=== PATIENT | male | born 1950 | race Caucasian/White ===

== ENCOUNTER 2016-08-04 04:10 | Emergency (ER) | payer OTHER, BC ==
[2016-08-04 04:18] VITALS: PULSE 70; TEMP 987.8; BMI 25.7
[2016-08-04] MEDS ORDERED: CYCLOBENZAPRINE HCL 10 MG TABLET (FP) PO ONE (04:25)
[2016-08-04] MEDS ORDERED: KETOROLAC TROMETHAMINE 60 MG/2 ML VIAL IM ONE (04:25)
--- NOTE | 2016-08-04 04:25 | PDOC ---
History of Present Illness - General Chief Complaint: Pain, Acute Stated Complaint: BACK PAIN RADIATING DOWN LEG X 2 WEEKS Time Seen by Provider: 08/04/16 04:19 History Source: Patient Exam Limitations: No Limitations - History of Present Illness Initial Comments: 08/04/16 04:27 This is a 66-year-old male who comes in complaining of low back pain radiating to his left leg. Patient denies any numbness or weakness of left leg. Patient has a history of pain and was recently seen by his orthopedist who started him on a Medrol Dosepak. Patient said he has finished Medrol Dosepak and the pain is still there. Patient denies any new or recent trauma. Patient said that when he was at the orthopedist he had x-rays of his back and hip and they were fine. Patient otherwise is healthy. Patient has another appointment with his orthopedist for this week. PAST MEDICAL HISTORY: no significant history PAST SURGICAL HISTORY: no significant history FAMILY HISTORY: no pertinant history SOCIAL HISTORY: Pt lives with family and is employed. MEDICATIONS: reviewed ALLERGIES: As per nursing notes Review of Systems General: No fevers or chills, no weakness, no weight loss HEENT: No change in vision. No sore throat,. No ear pain CardioVascular: No chest pain or shortness of breath Respiratory:No cough, or wheezing. Gastrointestinal: no nausea, vomitting, diarrhea or constipation, No rectal bleeding Genitourinary: No dysuria, hematuria, or frequency Musculoskeletal: No joint or muscle pain or swelling, low back pain/sciatica as per history of present illness Neurologic: No headache, vertigo, dizziness or loss of consciousness Psychiatric: nor depression Skin: No rashes or easy bruising Endocrine: no increased thirst or abnormal weight change Allergic: no skin or latex allergy All other systems reviewed and normal GENERAL: The patient is awake, alert, and fully oriented, in no acute distress. HEAD: Normal with no signs of trauma. EYES: Pupils equal, round and reactive to light, extraocular movements intact, sclera anicteric, conjunctiva clear. EXTREMITIES: Normal range of motion, no edema. Back: There is tenderness on palpation of the sciatic notch and L5-S1 area. There is paraspinal spasm. Pain is reproduced on straight leg raising at approximately 45 on the left and 90 on the right. Neurovascular is intact. NEUROLOGICAL: Normal speech, normal gait. PSYCH: Normal mood, normal affect. SKIN: Warm, Dry, normal turgor, no rashes or lesions noted. Assessment and plan: This is a 66-year-old male who comes in complaining of sciatica/low back pain radiating to his leg. Patient given a shot of Toradol and started on Flexeril. Patient has an appointment with his orthopedist to follow-up this week. Patient discharged home with prescription for more Flexeril. Past History - Past Medical History Allergies/Adverse Reactions: Allergies Allergy/AdvReac Type Severity Reaction Status Date / Time pseudoephedrine HCl AdvReac Verified 08/04/16 04:12 [From [facility]] Home Medications: Ambulatory Orders Cyclobenzaprine HCl [Flexeril 10 mg] 10 mg PO TID #60 tablet 08/04/16 Other medical history: DENIES - Psycho/Social/Smoking Cessation Hx Anxiety: No Suicidal Ideation: No Smoking History: Never smoked Have you smoked in the past 12 months: No Information on smoking cessation initiated: No Hx Alcohol Use: Yes (MODERATE) Drug/Substance Use Hx: No Substance Use Type: None *Physical Exam - Vital Signs Last Vital Signs Temp Pulse Resp BP Pulse Ox 987.8 F H 70 16 154/111 100 08/04/16 04:13 08/04/16 04:13 08/04/16 04:13 08/04/16 04:13 08/04/16 04:13 *DC/Admit/Observation/Transfer Diagnosis at time of Disposition: Sciatica of left side - Discharge Dispostion Disposition: HOME Condition at time of disposition: Stable Admit: No - Referrals Referrals: Francesco Soto MD [Primary Care Provider] - - Patient Instructions Printed Discharge Instructions: DI for Back Pain With Sciatica, Sciatica ( Alternative Therapy), Early Surgery Relieves Sciatica Pain Faster, but Nonsurgical Treatment Is J Additional Instructions: For the pain continue to take her Aleve as prescribed In addition take Flexeril one tablet 3 times a day the Flexeril make you drowsy so you may need to just limited to the nighttime hours. Return to the emergency department immediately with ANY new, persistent or worsening symptoms. Continue any medications as previously prescribed by your physician. You should follow up with your primary doctor as soon as possible regarding today's emergency department visit. . Please make sure your doctor reviews the results of your emergency evaluation. Thank you for coming to the Emergency Department today for your care. It was a pleasure to see you today. Please note that your evaluation is INCOMPLETE until you follow-up with your doctor.
[2016-08-04] MEDS ORDERED: CYCLOBENZAPRINE HCL 10 MG TABLET (FP) ONE (04:26)
[2016-08-04] MEDS ORDERED: KETOROLAC TROMETHAMINE 60 MG/2 ML VIAL ONE (04:26)
[2016-08-04 04:32] VITALS: BP 170/106
== END 2016-08-04 04:34 | disposition home or self-care (01) ==
LOC: FER 04:10
PROC: 3E0233Z Introduction of Anti-inflammatory into Muscle, Percutaneous Approach (ICD-10-PCS; principal; 2016-08-04)
DX: M54.32 Sciatica, left side (principal)
CPT/HCPCS: 96372; 99281-25

== ENCOUNTER 2018-03-07 10:04 | Inpatient (IN) | payer OTHER, BC ==
[2018-02-20 12:47] VITALS: BMI 26.6
--- NOTE | 2018-03-07 08:01 | HP ---
Satellite [facility] - Chief Complaint Chief Complaint: right hip pain - Past Medical History Allergies/Adverse Reactions: Allergies Allergy/AdvReac Type Severity Reaction Status Date / Time pseudoephedrine HCl AdvReac Intermediate GETS VERY Verified 02/20/18 12:29 [From Sudafed] ANTONIA MALHOTRA garlic AdvReac Mild DRY MOUTH Verified 02/20/18 12:30 onion AdvReac Mild DRY MOUTH Verified 02/20/18 12:30 - Current Medications Current Medications: Home Medications Medication Instructions Recorded Acetaminophen 500 mg PO ASDIR PRN 02/20/18 Duloxetine HCl [Cymbalta] 30 mg PO DAILY 02/20/18 Ibuprofen [Advil -] 200 mg PO QID PRN 02/20/18 Loratadine [Claritin] 10 mg PO ASDIR PRN 02/20/18 Medical Marijuana [Medical 1 dose PO ASDIR PRN 02/20/18 Marijuana Oil] Naproxen Sodium [Aleve] 220 mg PO ASDIR PRN 02/20/18 Vitamin E 400 unit PO DAILY 02/20/18 Zolpidem Tartrate [Ambien] 5 mg PO HS PRN 02/20/18 Satellite Physical Exam - Physical Examination General Appearance: Well Nourished, Well Developed, Alert & Oriented x3 ENT: Clear Lung: Normal air movement Heart: Regular rate & rhythm Extremities: Other (right hip- + ttp ,decr rom, nvi xrays show grade 4 hip djd) Neurological: Intact, Alert, Oriented Satellite Impression/Plan - Impression/Plan Impression: right hip djd Operative Procedure: right rocio thr Date to be Performed: 03/07/18
[2018-03-07] MEDS ORDERED: CEFAZOLIN 2 GM in DEXTROSE 5%-WATER - 50 ML IVPB ONE (10:44)
[2018-03-07] MEDS ORDERED: TRANEXAMIC ACID 1000 MG/10 ML VIAL IVPUSH ONE (11:00)
[2018-03-07] MEDS ORDERED: MIDAZOLAM HCL 2 MG/2 ML SINGLE DOSE VIAL ONE ×2 (12:06→13:01)
[2018-03-07] MEDS ORDERED: EPINEPHrine/PF 1 MG/1 ML (1:1,000) AMPULE ONE (12:07)
[2018-03-07] MEDS ORDERED: BUPIVACAINE HCL/PF (5 MG/ML) 30 ML VIAL IJ ONE (12:07)
[2018-03-07] MEDS ORDERED: ceFAZolin SODIUM 1 GM VIAL ONE ×2 (12:49→13:03)
[2018-03-07] MEDS ORDERED: VANCOMYCIN 1,000 MG VIAL (RESTRICTED TO ID ONLY) ONE (12:49)
[2018-03-07] MEDS ORDERED: SODIUM CHLORIDE 0.9% P/F 10 ML VIAL IJ ONE (13:03)
[2018-03-07] MEDS ORDERED: DEXAMETHASONE SOD PHOSPHATE 4 MG/1 ML VIAL ONE (13:03)
[2018-03-07] MEDS ORDERED: ONDANSETRON 4 MG/2 ML VIAL ONE (13:03)
[2018-03-07] MEDS ORDERED: TRANEXAMIC ACID 1000 MG/10 ML VIAL ONE (13:03)
[2018-03-07] MEDS ORDERED: PROMETHAZINE HCL 25 MG/1 ML VIAL IVPUSH PRN (13:45)
[2018-03-07] MEDS ORDERED: ONDANSETRON 4 MG/2 ML VIAL IVPUSH PRN ×2 (13:45→15:11)
[2018-03-07] MEDS ORDERED: PROPOFOL 20 ML ONE (14:38)
[2018-03-07] MEDS ORDERED: VANCOMYCIN 1,000 MG VIAL (RESTRICTED TO ID ONLY) IVPB ONE (14:45)
[2018-03-07] MEDS ORDERED: CELECOXIB 200 MG CAPSULE PO ONE (15:00)
[2018-03-07] MEDS ORDERED: oxyCODONE HCL 10 MG SUSTAINED ACTING TABLET PO ONE (15:00)
[2018-03-07] MEDS ORDERED: GABAPENTIN 300 MG CAPSULE (FP) PO ONE (15:00)
[2018-03-07] MEDS ORDERED: ZOLPIDEM TARTRATE 5 MG TABLET PO PRN (15:11)
[2018-03-07] MEDS ORDERED: MAGNESIUM HYDROX 2400MG/30ML ORAL SUSPENSION 30 ML CUP PO PRN (15:11)
[2018-03-07] MEDS ORDERED: MAG HYDROX/AL HYDROX/SIMETH 30 ML UNIT-DOSE CUP PO PRN (15:11)
--- NOTE | 2018-03-07 15:13 | OP ---
Operative Note - Note: Operative Date: 03/07/18 (john) Pre-Operative Diagnosis: right hip djd Operation: right rocio thr Post-Operative Diagnosis: Same as Pre-op Surgeon: Francesco Soto Machine Clerical Verifier: Dudley Schmidt Anesthesiologist/HAND DRAWER IN: Gabino Bain Anesthesia: Spinal, Local Specimens Removed: femoral head Estimated Blood Loss (mls): 100 Operative Report Dictated: Yes
[2018-03-07] MEDS ORDERED: LACTATED RINGERS SOLUTION 1,000 ML IV SCH (15:15)
[2018-03-07] MEDS ORDERED: ACETAMINOPHEN 325 MG TABLET (FP) PO ONE (16:00)
[2018-03-07] MEDS: oxyCODONE HCL 5 MG TABLET PO PRN ×3 (18:13→21:04)
--- NOTE | 2018-03-07 18:47 | SPEC ---
DATE OF OPERATION: 03/07/2018 PREOPERATIVE DIAGNOSIS: Right hip degenerative joint disease. POSTOPERATIVE DIAGNOSIS: Right hip degenerative joint disease. PROCEDURE PERFORMED: Right total hip replacement with robotic-assisted navigation (MAKOplasty). SURGICAL ATTENDING: Francesco Soto MD MAGNETIC PROSPECTOR: NASH Koo ANESTHESIA: Regional and spinal. CLOSURE: A Trident II 56 press-fit acetabulum, Accolade II size 7 press-fit femoral stem, and a metallic standard 36-mm head. No. 1 Vicryl for fascia, 0 and 2-0 subcutaneous, 3-0 Monocryl subcuticular with skin glue for skin, 4-0 undyed Vicryl for pin sites. ESTIMATED BLOOD LOSS: Less than 100 mL. COMPLICATIONS: None. CONDITION: To the recovery room in stable condition. DESCRIPTION OF PROCEDURE: The patient was taken to the operating room on March 07, 2018. General and regional anesthesia was administered by the anesthesiologist. IV Kefzol and TXA were administered prophylactically prior to the case. The patient was placed in the lateral decubitus position will all prominences well-padded. The right hip area was prepped and draped in the usual sterile fashion. Using 3 small stab incisions over the iliac crest, 3 threaded pins were drilled in power fashion through the 2 tables of the crest. These pins were fastened and the navigation array for the Layo navigation system. Next, a 12- to 15-cm curved longitudinal incision over the posterolateral aspect of the greater trochanter was incised. Hemostasis was achieved with Bovie cautery. Sharp dissection was carried down to level of the fascia. The fascia was opened the entire length of the incision, spreading the fibers of the gluteus christy in the direction of origin. A Charnley retractor was placed in this layer. Care was taken not to impale the sciatic nerve. The short external rotators were detached off the insertion of the greater trochanter and peeled off the capsule. A posterior capsulotomy was then performed. A check point was malleted into the greater trochanter and a point on the inferior pole of the patella was obtained as well. These 2 points were used to assess the preoperative offset and limb lengths of the hip. The hip was then dislocated. The femoral neck was then osteotomized down to the appropriate level as directed by the navigation device. Anterior and posterior retractors were placed, exposing the acetabulum. A circumferential labral excision was performed. A check point was malleted into the acetabulum as well. Multiple sites inside the acetabulum and around the rim were utilized to register the acetabulum with the navigation device. An excellent registration of less than 0.5 mm was obtained. The hip was then reamed with the appropriate reamer down to the appropriate depth, with the appropriate orientation and version as assessed on our preoperative plan for this patient. The reamer was removed, and the acetabulum was inspected to have good bleeding surfaces throughout. The real acetabular cup was then malleted down into place, with the holes in the appropriate position, until an excellent fixation was obtained. No screws were necessary. The navigation device ensured appropriate orientation and version, with the depth as predetermined. The appropriate liner was then clipped into place. Attention was directed to the femur. The proximal femur was prepared by use a box chisel, a canal finder and serial broaches until the broach achieved excellent rigidity in the proximal femur with the appropriate version being applied. A calcar planer was used to smooth off the calcar flush with the trial components. A trial reduction with the appropriate head was done, and the hip was reduced. The hip was taken through a range of motion from full extension with external rotation to marked flexion and was stable at 90 degrees of flexion. It was stable to marked abduction and internal rotation, with a positive hang test and negative telescoping. Limb lengths were ascertained visually as well as with the navigation device to be within the targeted range for this patient. The trial component was removed. The real component was then malleted into place. The head was cold welded to the trunnion, and the hip was reduced. Range of motion, stability and limb lengths were as described in the trial component. Then the hip was pulse antibiotic irrigated. Vancomycin powder was placed in the hip joint. The capsule was closed. The fascia was then closed as well using No. 1 Vicryl interrupted suture, 0 and 2-0 subcutaneous, and 3-0 V-Loc for the skin. Then 4-0 undyed Vicryl was used to close the pin sites after the pins were removed. All check points were also removed. Sterile Aquacel dressing was applied. The patient was awakened from anesthesia and transferred into the supine position. Bilateral SCDs and an abduction pillow were placed. X-rays revealed excellent position of the components. The patient was transferred to the recovery room in stable condition, with no complications. Estimated blood loss was less than 100 mL. Kenn [id number]
[2018-03-07] MEDS: CEFAZOLIN 2 GM/D5W 2 GM/50 ML ML IVPB SCH (21:04)
[2018-03-07] MEDS: SENNOSIDES/DOCUSATE COMBO (SENNA PLUS) TABLET (UD) PO SCH (21:04)
[2018-03-07] MEDS: ACETAMINOPHEN 325 MG TABLET (FP) PO SCH (21:05)
[2018-03-07] MEDS: oxyCODONE HCL 10 MG SUSTAINED ACTING TABLET PO SCH (21:05)
[2018-03-08] MEDS: oxyCODONE HCL 5 MG TABLET PO PRN ×3 (00:13→20:42)
[2018-03-08] MEDS: ACETAMINOPHEN 325 MG TABLET (FP) PO SCH ×4 (03:43→22:18)
[2018-03-08] MEDS: CEFAZOLIN 2 GM/D5W 2 GM/50 ML ML IVPB SCH (06:52)
[2018-03-08] MEDS: ASPIRIN 325 MG TABLET PO SCH (08:13)
[2018-03-08 08:14] LABS: HEMOGLOBIN 13.4 GM/dl (11.7-16.9); MCHC 34.4 g/dl (32.0-35.9); MEAN CELL VOLUME 98.6 fl (80-96); MEAN PLT VOLUME 8.4 fl (7.5-11.1); PLATELET COUNT 265 K/MM3 (134-434); RBC 3.95 M/mm3 (4.00-5.60); RDW 11.9 % (11.9-15.9); WHITE BLOOD COUNT 14.3 K/mm3 (4.0-10.8)
--- NOTE | 2018-03-08 10:00 | PN ---
Progress Note (short form) - Note Progress Note: Ortho Pt seen and examined s/p right rocio thr pod #1 Selected Entries 03/08/18 06:00 Temperature 97.5 F L Pulse Rate 70 Respiratory 18 Rate Blood Pressure 126/79 Laboratory Tests 03/08/18 07:41 WBC 14.3 H Hgb 13.4 Hct 39.0 Plt Count 265 dressing c/d/i, calf soft, nt nvi a/p PT hip precautions dvt ppx pain control d/c home tomorrow if stable
[2018-03-08] MEDS: DULoxetine HCL 30 MG CAPSULE.DR (FP) PO SCH (10:12)
[2018-03-08] MEDS: SENNOSIDES/DOCUSATE COMBO (SENNA PLUS) TABLET (UD) PO SCH ×2 (10:12→22:18)
[2018-03-08] MEDS: PANTOPRAZOLE 40 MG TABLET (FP) PO SCH (10:12)
[2018-03-08] MEDS: MULTIVITAMINS (DAILY MVI) TABLET (FP) PO SCH (10:12)
[2018-03-08] MEDS: oxyCODONE HCL 10 MG SUSTAINED ACTING TABLET PO SCH ×2 (10:13→22:18)
--- NOTE | 2018-03-08 10:17 | PN ---
Progress Note (short form) - Note Progress Note: 68 M POD1 s/p R THR under under spinal anesthetic with peripheral nerve block for post operative pain relief. Pt states that pain is well controlled and reports no anesthetic complications. AVSS. Motor and sensory function intact in bilateral lower extremities. Continue current regimen.
[2018-03-09] MEDS: ACETAMINOPHEN 325 MG TABLET (FP) PO SCH ×2 (03:06→09:35)
[2018-03-09] MEDS: oxyCODONE HCL 5 MG TABLET PO PRN (06:25)
[2018-03-09] MEDS: ASPIRIN 325 MG TABLET PO SCH (08:17)
[2018-03-09 08:18] LABS: HEMATOCRIT 38.3 % (35.4-49); HEMOGLOBIN 13.3 GM/dl (11.7-16.9); MCH 34.2 pg (25.7-33.7); MCHC 34.7 g/dl (32.0-35.9); MEAN CELL VOLUME 98.4 fl (80-96); MEAN PLT VOLUME 8.1 fl (7.5-11.1); PLATELET COUNT 227 K/MM3 (134-434); RBC 3.89 M/mm3 (4.00-5.60); RDW 12.1 % (11.9-15.9); WHITE BLOOD COUNT 10.9 K/mm3 (4.0-10.8)
[2018-03-09 09:33] VITALS: BP 139/72; PULSE 101; TEMP 98.7
[2018-03-09] MEDS: DULoxetine HCL 30 MG CAPSULE.DR (FP) PO SCH (09:34)
[2018-03-09] MEDS: PANTOPRAZOLE 40 MG TABLET (FP) PO SCH (09:34)
[2018-03-09] MEDS: MULTIVITAMINS (DAILY MVI) TABLET (FP) PO SCH (09:34)
[2018-03-09] MEDS: SENNOSIDES/DOCUSATE COMBO (SENNA PLUS) TABLET (UD) PO SCH (09:34)
[2018-03-09] MEDS: oxyCODONE HCL 10 MG SUSTAINED ACTING TABLET PO SCH (09:34)
--- NOTE | 2018-03-09 10:16 | PN ---
Progress Note (short form) - Note Progress Note: Ortho Pt seen and examined s/p right rocio thr pod #2 Selected Entries 03/09/18 09:31 Temperature 98.7 F Pulse Rate 101 H Respiratory 20 Rate Blood Pressure 139/72 Laboratory Tests 03/09/18 07:44 WBC 10.9 H Hgb 13.3 Hct 38.3 Plt Count 227 dressing c/d/i, calf soft, nt nvi a/p PT hip precautions dvt ppx pain control d/c home today f/u in 1 week
--- NOTE | 2018-03-09 10:16 | DS ---
Physical Examination Vital Signs: Vital Signs Temperature 98.7 F 03/09/18 09:31 Pulse Rate 101 H 03/09/18 09:31 Respiratory Rate 20 03/09/18 09:31 Blood Pressure 139/72 03/09/18 09:31 O2 Sat by Pulse Oximetry (%) 98 03/09/18 07:02 Labs: CBC, BMP 03/09/18 07:44 Discharge Summary Reason For Visit: OSTEOARTHRITIS Procedures: Principal: right thr Hospital Course: admitted for elective right rocio thr, uneventful post-op, stable for d/c Condition: Good - Instructions Diet, Activity, Other Instructions: Post-op Instructions-Total Hip Replacement Call the office for a follow-up appointment in 1 week - [phone] Aspirin 325mg daily for 6 weeks. Pain medication was sent into your pharmacy. Apply Graduated Compression Stockings (TEDs) to both lower extremities- remove daily for hygiene ONLY Apply Sequential Compression Device (SCDs) to both Lower extremities remove for PT and hygiene ONLY Apply cold packs to affected area for 15 minutes every 2 hours. Physical Therapist will come to your home for the first 5 days. You will be set up with outpatient PT at your first post-operative visit. Patient may ambulate as tolerated-encourage self care (at least every 2-3 hours while awake) with walker or cane Maintain Aquacel (waterproof) dressing to operative wound (will be removed by surgeon at first office visit) Shower with Aquacel dressing in place-if Aquacel integrity compromised, remove and apply dry sterile dressing and notify Orthopedist. DO NOT SHOWER unless Orthopedists approves without Aquacel dressing CONTACT THE OFFICE FOR ANY CHANGE IN YOUR CONDITION (for example-fever greater than 102 degrees, excessive bleeding from operative site, purulent drainage, severe swelling or pain) GO TO THE EMERGENCY ROOM IF THERE IS A MEDICAL EMERGENCY Hip Precautions: * Keep a rolled towel under affected heel while in bed or chair (to keep knee in extension) * Dependent upon approach: * Posterior - do not cross legs; do not sit on low chairs or toilets. * If you have any questions, please do not hesitate to call the office - . Referrals: Francesco Soto MD [Primary Care Provider] - Disposition: VNS/HOME HEALTH CARE - Home Medications Comprehensive Discharge Medication List: Ambulatory Orders Acetaminophen 500 mg PO ASDIR PRN 02/20/18 Duloxetine HCl [Cymbalta] 30 mg PO DAILY 02/20/18 Loratadine [Claritin] 10 mg PO ASDIR PRN 02/20/18 Medical Marijuana [Medical Marijuana Oil] 1 dose PO ASDIR PRN 02/20/18 Vitamin E 400 unit PO DAILY 02/20/18 Zolpidem Tartrate [Ambien] 5 mg PO HS PRN 02/20/18 Aspirin [ASA -] 325 mg PO DAILY@0800 tablet 03/07/18 Oxycodone HCl/Acetaminophen [Percocet 5-325 mg Tablet -] 1 - 2 tab PO Q6H #50 tab MDD 8 03/07/18
--- NOTE | 2018-03-14 16:24 | PATH ---
Surgical Pathology Report Patient Name: REBECCA DELEON Med. Rec. #: [id number] /Age/Gender: 1950 (Age: 68) / M Account: [id number] Location: [facility] MED-SURG Taken: 03/07/2018 Received: 03/07/2018 Reported: 03/14/2018 Physicians: Francesco Soto M.D. Specimen(s) Received RIGHT FEMORAL HEAD Clinical History Right hip osteoarthritis Final Diagnosis FEMORAL HEAD, RIGHT, TOTAL HIP REPLACEMENT: DEGENERATIVE JOINT DISEASE. Electronically Signed Shannon Vogel M.D. Gross Description Received in formalin, labeled "right femoral head," is a 5.5 x 5 x 3.5 cm. femoral head. The margin of resection is smooth. The surface shows areas of granularity and eburnation. The underlying trabecular bone is yellow and hard. A retail sales representative section is submitted in one cassette, following decalcification. AE/03/10/2018 ebram/03/10/2018
== END 2018-03-09 11:47 | disposition home health service (06) | DRG 470 ==
LOC: FM/S 10:04
PROVIDERS: ADMIT Orthopaedic Surgery; ATTEND Orthopaedic Surgery
PROC: 8E0Y0CZ Robotic Assisted Procedure of Lower Extremity, Open Approach (ICD-10-PCS; 2018-03-07)
PROC: 0SR90JZ Replacement of Right Hip Joint with Synthetic Substitute, Open Approach (ICD-10-PCS; principal; 2018-03-07 14:05)
DX: M16.11 Unilateral primary osteoarthritis, right hip (principal)
CPT/HCPCS: 36415; 73502-TC-RT; 85027; 86803; 87389; 88304-TC; 88311-TC; 94760; 97116-GP; 97162-GP